=== PATIENT | female | born 1965 | race African-American/Black ===

== ENCOUNTER 2024-06-04 20:41 | Emergency (ER) | payer SELFPAY ==
[~2024-06-04] VITALS: Ht 170.2 cm; Wt 87.0 kg
[2024-06-04 20:55] VITALS: TEMP 99; O2SAT 99
[2024-06-04 23:47] VITALS: BP 122/86; PULSE 103; RESP 18
[2024-06-04] MEDS: KETOROLAC 15MG/ML VIAL IM ONE (23:47)
== END 2024-06-04 23:58 | disposition left against medical advice (07) ==
LOC: ER 20:41
DX: S69.82XA Other specified injuries of left wrist, hand and finger(s), initial encounter (principal); Z88.6 Allergy status to analgesic agent; X58.XXXA Exposure to other specified factors, initial encounter; Y93.89 Activity, other specified; Y92.89 Other specified places as the place of occurrence of the external cause; Y99.8 Other external cause status
CPT/HCPCS: 99283; 73100; 29125; 96372; J1885